=== PATIENT | male | born 1995 | race Caucasian/White ===

== ENCOUNTER 2017-08-24 14:50 | Emergency (ER) | payer BC, OTHER ==
[2017-08-24] MEDS ORDERED: Diphtheria,Pertussis(Acell),Tetanus Vaccine 0.5 ML SDV IM ONE (15:20)
--- NOTE | 2017-08-24 15:27 | EDM.PDOC ---
ED HPI GENERAL MEDICAL PROBLEM - General Chief Complaint: Laceration Stated Complaint: LEFT ARM Time Seen by Provider: 08/24/17 15:15 Source of Information: Reports: Patient History Limitations: Reports: No Limitations - History of Present Illness INITIAL COMMENTS - FREE TEXT/NARRATIVE: 22 yo male accidentally was stabbed by a small knife at work just before arrival. Is uncertain about the depth of the wound. Bleeding controlled on arrival. Uncertain about the timing of his last Tetanus. No numbness of hand. 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) - Related Data Allergies Allergy/AdvReac Type Severity Reaction Status Date / Time sulfamethoxazole Allergy Cannot Verified 08/24/17 15:08 [From Bactrim] Remember trimethoprim [From Bactrim] Allergy Cannot Verified 08/24/17 15:08 Remember Home Meds: Home Meds NK [No Known Home Meds] 10/02/15 [History] Social & Family History - Tobacco Use Smoking Status *Q: Never Smoker Second Hand Smoke Exposure: No - Recreational Drug Use Recreational Drug Use: No ED ROS GENERAL - Review of Systems Review Of Systems: See Below Constitutional: Reports: No Symptoms Musculoskeletal: Reports: No Symptoms Skin: Reports: Wound Neurological: Reports: No Symptoms ED EXAM, SKIN/RASH Exam: See Below Exam Limited By: No Limitations General Appearance: Alert, WD/WN, No Apparent Distress Extremities: Other (small puncture wound L forearm. ) Neurological: Alert, Oriented, CN II-XII Intact, Normal Cognition, No Motor/ Sensory Deficits Psychiatric: Normal Affect, Normal Mood Skin: Warm, Dry, Normal Color, No Rash, Wound/Incision (0.3 cm wound to left anterior forearm. No hematoma. No active bleeding. CMS intact distally. ) Location, Skin: Upper Extremity, Left Characteristics: Linear Lymphatic: No Adenopathy Course - Vital Signs Text/Narrative:: Wound cleaned and dressed per nursing. Adacel given IM Last Recorded V/S: Last Vital Signs Temp 36.4 C 08/24/17 15:08 Pulse 87 08/24/17 15:08 Resp 14 08/24/17 15:08 BP 131/75 08/24/17 15:08 Pulse Ox 98 08/24/17 15:08 - Orders/Labs/Meds Orders: Active Orders 24 hr Category Date Time Status Vaccines to be Administered [RC] PER UNIT ROUTINE Care 08/24/17 15:20 Active Meds: Medications Discontinued Medications Generic Name Dose Route Start Last Admin Trade Name Freq PRN Reason Stop Dose Admin Diphtheria/Tetanus/Acell Pertussis 0.5 ml 08/24/17 15:20 Adacel IM 08/24/17 15:21 .ONCE ONE Departure - Departure Time of Disposition: 15:35 Disposition: Home, Self-Care 01 Condition: Good Clinical Impression: Puncture wound of forearm, left Qualifiers: Encounter type: initial encounter Qualified Code(s): S51.832A - Puncture wound without foreign body of left forearm, initial encounter - Discharge Information Referrals: Elías Elam MD [Primary Care Provider] - Forms: ED Department Discharge - My Orders Last 24 Hours: My Active Orders 08/24/17 15:20 Vaccines to be Administered [RC] PER UNIT ROUTINE - Assessment/Plan Last 24 Hours: My Active Orders 08/24/17 15:20 Vaccines to be Administered [RC] PER UNIT ROUTINE
[2017-08-24 15:49] VITALS: BP 121/70
== END 2017-08-24 15:48 | disposition home or self-care (01) ==
LOC: FB.ED 14:50
DX: S51.832A Puncture wound without foreign body of left forearm, initial encounter (principal); Z88.2 Allergy status to sulfonamides; Z88.8 Allergy status to other drugs, medicaments and biological substances; W26.0XXA Contact with knife, initial encounter
CPT/HCPCS: 90471; 90715; 99000; 99283